=== PATIENT | male | born 1965 | race Caucasian/White ===

== ENCOUNTER 2025-01-06 21:29 | Emergency (ER) | payer BC, SELFPAY ==
[2025-01-06 21:47] VITALS: BP 167/104
[2025-01-06 22:12] LABS: % Basophils 0.3 % (0-2); % Eosinophils 0.1 % (0-6); % Immature Granulocytes 1.2 % (0-0.5); % Lymphocytes 17.4 % (20.5-51.1); % Monocytes 8.4 % (1.7-9.3); % Neutrophils 72.6 % (42.2-75.2); Absolute Immature Granulocytes 0.1 10^3/uL (0-0.05); Absolute Lymphocytes 1.3 10^3/uL (1.2-3.4); Absolute Monocytes 0.6 10^3/uL (0.1-0.6); Absolute Neutrophils 5.5 10^3/uL (1.4-6.5); Hematocrit 42.7 % (39.0-52.0); Hemoglobin 14.9 g/dL (13.0-18.0); Mean Corp Hgb Conc. 34.9 g/dL (33.0-37.0); Mean Corpuscular Hgb 33.1 pg (27.0-31.0); Mean Corpuscular Volume 94.9 fL (80.0-94.0); Mean Platelet Volume 9.9 fL (7.4-10.4); Nucleated Red Blood Cells % 0 % (-); Platelet Count 146 10^3/uL (130-400); Red Cell Dist. Width 13.8 % (11.5-14.5); White Blood Cell Count 7.5 10^3/uL (4.8-10.8)
[2025-01-06 22:26] LABS: ALT (SGPT) 51 U/L (0-50); AST (SGOT) 28 U/L (17-59); Albumin 4.5 g/dl (3.5-5.0); Alkaline Phosphatase 49 U/L (38-126); Blood Urea Nitrogen 20 mg/dl (9-20); Calcium 9.8 mg/dl (8.4-10.2); Carbon Dioxide 22 mmol/L (22-30); Chloride 101 mmol/L (98-107); Glucose 108 mg/dl (70-99); Potassium 3.9 mmol/L (3.5-5.1); Sodium 134 mmol/L (135-145); Total Bilirubin 0.4 mg/dl (0.2-1.3); Total Protein 7.2 g/dl (6.3-8.2); eGFR > 60.00
[2025-01-06 23:02] LABS: Troponin I < 0.012 ng/ml
--- NOTE | 2025-01-07 01:48 | ED.GENMED ---
History of Present Illness
General
Chief Complaint: Breathing Problem
Source: patient
Exam Limitations: none
Time Seen by Provider: 01/07/25 01:32
Nursing documentation reviewed up to this point in time: agreed with
History of Present Illness
History of Present Illness:
This is a 59-year-old gentleman who has history of seasonal allergies, history of occasional wheezing, has been prescribed albuterol inhaler in the past for as needed wheezing. He complains of 1 month history of persistent cough, initially began
with influenza-like illness perhaps 3 weeks ago, his as well as other family members and coworkers had similar URI symptoms 1 of which tested positive for influenza. He admits to subjective fever 3 weeks ago which resolved within a day or 2,
cough and nasal congestion have persisted and thus he presented to urgent care earlier this week and prescribed a Z-Ovidio, Medrol Dosepak and Tessalon. He has completed day 4 of these medications. He has also been using his albuterol inhaler
sporadically perhaps 3-4 times over the week and used his albuterol inhaler tonight with onset of cough and shortness of breath which she describes as a sense of tightness in his chest, feeling that he is unable to take a full deep breath. Despite
using albuterol inhaler symptoms persist and he presents to the ER for further evaluation.
He denies leg pain or swelling. No recent travel.
No history of CAD, no history of hypertension/hyperlipidemia, no history of valvular heart disease.
Lifelong non-smoker.
Past History
Past History
ED Past Medical History: Psychiatric (depression) and Other (Seasonal allergies; occasional wheezing)
ED Past Surgical History: Other (hernia repair-left)
Social History
Tobacco: Non-smoker
Drug: None
Personal:
Living: with family
Employment: Employed
Family History
Family History: Other (Noncontributory)
Phy Exam
Physical Exam
Physical Exam:
GENERAL: 59-year-old gentleman appears his stated age, awake and alert, pleasant, appears in no acute distress. Exhibits that mild nasal, stuffy voice, rare dry nonproductive cough is noted. Able to speak in full sentences. is accompanying.
EYE: anicteric
NECK: Supple, nontender, no meningismus, no significant adenopathy. No JVD.
ENT: posterior pharynx is without injection or edema, scant clear to pearly postnasal drip is noted, oral mucosa is moist. TM clear b/l, nares have moderately boggy pale blue turbinates with scant clear rhinorrhea.
CARDIAC: Regular rate and rhythm. no murmur. No rub.
LUNGS: no acute respiratory distress, minimally decreased breath sounds at bases otherwise clear to auscultation.
ABDOMEN: Soft, nondistended, without focal tenderness
NEUROLOGICAL: Alert and oriented x3, no focal neuro deficits. Gait is steady.
SKIN: Warm and dry, normal color, skin intact. No rash.
MUSCULOSKELETAL: No C/C/E. peripheral pulses are full and equal b/l. No palpable tenderness.
PSYCH: Normal and appropriate interaction.
Scores
Heart Failure Risk
Heart Failure Risk Score: Not Applicable
Course
Orders/Labs/Results
Orders:
Orders
01/06/25 21:49
Electrocardiogram (*1) Urgent
Reason for Study: Chest Pain
EKG- Treatment ONCE
01/06/25 22:03
Complete Blood Count/With Diff Urgent
Comprehensive Metabolic Panel Urgent
Troponin I Urgent
01/07/25 01:47
Ipratropium/Albuterol Sulfate [Duoneb] 3 ml INH R NOW STA
CR Chest - 2 Views Urgent
Comment:
Reason For Exam: cough x 1 month, SOB tonight
01/07/25 02:56
Prednisone [Deltasone] 40 mg PO NOW STA
Abnormal Lab Results
01/06/25
22:03
RBC 4.50 L 10^6/uL
(4.70-6.10)
MCV 94.9 H fL
(80.0-94.0)
MCH 33.1 H pg
(27.0-31.0)
Abs Immat Gran (auto) 0.1 H 10^3/uL
(0-0.05)
Immature Gran % 1.2 H %
(0-0.5)
Lymphocytes % 17.4 L %
(20.5-51.1)
Sodium 134 L mmol/L
(135-145)
Glucose 108 H mg/dl
(70-99)
ALT 51 H U/L
(0-50)
01/06/25 22:03
01/06/25 22:03
Vital Signs
Initial and Last Documented VS:
Initial Vital Signs
Temp Pulse Resp BP Pulse Ox
98.7 F 84 22 167/104 95
01/06/25 21:47 01/06/25 21:47 01/06/25 21:47 01/06/25 21:47 01/06/25 21:47
Last Documented Vital Signs
Temp Pulse Resp BP Pulse Ox
98.7 F 71 16 137/98 94
01/06/25 21:47 01/07/25 02:31 01/07/25 02:31 01/07/25 02:31 01/07/25 02:31
MDM/Problems Addressed
Differential Diagnosis Includes:
Concern for asthmatic bronchitis, pneumonia. Other consideration is CAD/ACS. No history of nor risk factors for CHF nor thromboembolism.
Labs are reassuring, within normal limits. Troponin is negative and EKG is within normal limits, unchanged from previous July 2022.
With persistent cough over the past month, must consider pertussis but patient currently completing a Z-Ovidio which should cover potential pertussis.
Will check chest x-ray and will trial DuoNeb nebulizer.
Chronic conditions affecting care: Asthma (No formal diagnosis of asthma but has previously been prescribed albuterol inhaler for wheezing)
*Radiology
Radiology exam reviewed: preliminary read by ED provider (Chest x-ray is unremarkable, clear lung farrell. Normal heart size.)
*Pulse Oximetry
Patient hypoxic: no
*EKG
Interpreted by ED Provider?: Yes
Interpretation: normal
Comparison EKG: no changes (Unchanged from previous July 2022)
Rate: normal
Rhythm: sinus
Zearing: normal axis
Interval: normal interval
QRS Pattern: normal QRS
Ischemia: no ischemia
*Critical Care Note
Total Time (30-74mins, 75-104mins- exclusive of procedures): Not Applicable
Update Note
Update Note:
03:00
After nebulizer treatment patient notes mild improvement in tightness in chest, less cough but does continue with some tightness more so with attempting to take a deep breath.
He continues to have no shortness of breath, pulse ox 98%, speaking in full sentences.
Chest x-ray is unremarkable, clear lung farrell, normal heart size.
He has noted to have moderate allergic rhinitis on exam and admits that he has not resumed his Zyrtec as yet. Recommend he resume Zyrtec for what I suspect is exacerbation of seasonal allergies.
I have recommended he take a steroid nasal spray but patient states he has had difficulty with steroid nasal sprays in the past, causing similar tightness in the chest after using them for a year or so and then after discontinuing, tightness
eventually resolved within 3 months. I am not convinced that intermittent tightness in his chest was related to steroid nasal sprays, they could be seasonal allergy or intermittent asthma in nature. Nonetheless recommend he resume his Zyrtec,
finish his last dose of Zithromax and will plan for a lengthier course of prednisone for what I suspect is exacerbation of wheezing/mild asthma.
Encourage prompt follow-up with family doctor, patient will be referred to our family practice clinic as he currently does not have a PCP.
Return precautions discussed.
ED Attending Note
-
Portions of this chart may have been created with voice recognition software.� Occasional wrong word or��sound alike� substitutions may have occurred due to the inherent limitations of voice recognition software.
Discharge Plan
Departure
Patient Disposition: Home (Routine Discharge)
Date of Disposition: 01/07/25
Time of Disposition: 02:56
Patient with high blood pressure during this ER visit?: Yes
Condition: Good
Discharge Problem:
Acute asthmatic bronchitis, Acute seasonal allergic rhinitis
Instructions: Seasonal Allergies ED, Wheezing in adults - ED discharge instructions, BLOOD PRESSURE
Prescriptions:
New
prednisone 10 mg Tablet
See Rx Instructions .ROUTE .COMPLEX Qty: 30 0RF
Rx Instructions:
Take By Mouth:
40 mg daily x3 days, 30 mg daily x3 days,
20 mg daily x3 days, 10 mg daily x3 days.
No Action
multivitamin Tablet
1 tab PO DAILY
vitamin B complex Capsule
1 cap PO DAILY
Ocuvite Tablet
1 tab PO DAILY
CoQ10 SG 100 100-100 mg-unit Capsule
1 cap PO DAILY
Cbd Gel Caps
1 cap PO DAILY
Zyrtec 10 mg Capsule
10 mg PO DAILY PRN (Reason: allergies)
oxycodone 5 mg tablet
5 mg PO Q4HPRN PRN (Reason: breakthrough/severe pain) Qty: 10 0RF
Referrals:
[facility] [Provider Group] - Call in 1-3 days for appt
NONE,* [Family Provider] -
Interventions
Interventions:
*Risk Screen - Suicide Last Done: 01/06/25 21:47
*General Assessment Last Done: 01/06/25 21:47
*Neglect/Abuse Screening Last Done: 01/06/25 21:47
*ED- Fall Risk Assessment Last Done: 01/07/25 01:43
*ED COVID-19 Vaccine History Last Done: 01/07/25 01:43
ED- Cardiac Assessment Last Done: 01/07/25 01:43
ED- Pulmonary Assessment Last Done: 01/07/25 01:43
Discharge Date and Time
Print Language: DJIBOUTIAN
[2025-01-07] MEDS: DUONEB 3 ML INH (01:53)
[2025-01-07 02:31] VITALS: BP 137/98
[2025-01-07] MEDS: DELTASONE 40 MG PO (03:10)
[2025-01-07 03:20] VITALS: BP 151/101
== END 2025-01-07 03:20 | disposition home or self-care (01) ==
LOC: EMR 21:29
PROVIDERS: Emergency Medicine; EMERGENCY PHYSICIAN Emergency Medicine
DX: J45.909 Unspecified asthma, uncomplicated (principal); R03.0 Elevated blood-pressure reading, without diagnosis of hypertension
CPT/HCPCS: 99285; 94640; 71046; 80053; 84484; 85025; 93005

== ENCOUNTER → 2025-01-19 11:58 | Outpatient (REF) | payer BC, SELFPAY | LOC: HWRCS 11:58 | PROVIDERS: ATTENDING PHYSICIAN Internal Medicine Interventional Cardiology | DX: R06.02 Shortness of breath (principal) | CPT/HCPCS: 78452; 93017; A9500 ==

== ENCOUNTER → 2025-01-20 12:55 | Outpatient (REF) | payer BC, SELFPAY | LOC: HWRCS 12:55 | PROVIDERS: ATTENDING PHYSICIAN Internal Medicine Interventional Cardiology | DX: I10 Essential (primary) hypertension (principal) | CPT/HCPCS: 93306 ==

== ENCOUNTER 2025-05-05 06:18 | Day surgery (SDC) | payer BC, SELFPAY | END 2025-05-05 14:24 | disposition home or self-care (01) | LOC: GI 06:18 | PROVIDERS: ATTENDING PHYSICIAN Internal Medicine Gastroenterology | DX: Z12.11 Encounter for screening for malignant neoplasm of colon (principal); K64.8 Other hemorrhoids; D12.0 Benign neoplasm of cecum; D12.4 Benign neoplasm of descending colon | CPT/HCPCS: 45385; 45380; 88305 ==